=== PATIENT | female | born 1985 ===

== ENCOUNTER 2018-01-31 08:18 | Emergency (ER) | payer OTHER, SELFPAY ==
[2018-01-31 08:25] VITALS: TEMP 97.9; O2SAT 100
[2018-01-31] MEDS ORDERED: Sodium Chloride 0.9% 1,000 ML IV ONE (08:50)
[2018-01-31] MEDS ORDERED: Sodium Chloride 0.9% 1,000 ML ONE (09:18)
--- NOTE | 2018-01-31 09:30 | C.PDOC ---
History Of Present Illness 32 y/o female, with no significant PMHx, presents to the ED for evaluation of RUQ pain gradually developing for the past 2 days. Pain is described as constant, aching, with no change in food intake. Associated with nausea. Otherwise patient denies any vomiting, diarrhea, fevers, chills, back pain, UTI symptoms, vaginal bleeding. Time Seen by Provider: 01/31/18 08:31 Chief Complaint (Nursing): Abdominal Pain History Per: Patient History/Exam Limitations: no limitations Onset/Duration Of Symptoms: Days Current Symptoms Are (Timing): Still Present Location Of Pain/Discomfort: RUQ Radiation Of Pain To:: None Quality Of Discomfort: Aching Associated Symptoms: Nausea Past Medical History Reviewed: Historical Data, Nursing Documentation, Vital Signs Vital Signs: Last Vital Signs Temp 97.9 F 01/31/18 08:22 Pulse 98 H 01/31/18 08:22 Resp 18 01/31/18 08:22 BP 116/79 01/31/18 08:22 Pulse Ox 100 01/31/18 08:22 - Medical History PMH: No Chronic Diseases Surgical History: (x2) Family History: States: Unknown Family Hx - Social History Hx Alcohol Use: No Hx Substance Use: No - Immunization History Hx Tetanus Toxoid Vaccination: No Hx Influenza Vaccination: Yes Hx Pneumococcal Vaccination: No Review Of Systems Except As Marked, All Systems Reviewed And Found Negative. Constitutional: Negative for: Fever, Chills, Sweats Eyes: Negative for: Vision Change Cardiovascular: Negative for: Chest Pain Respiratory: Negative for: Shortness of Breath Gastrointestinal: Positive for: Nausea, Abdominal Pain (RUQ). Negative for: Vomiting, Diarrhea, Hematochezia Genitourinary: Negative for: Dysuria, Frequency, Incontinence Musculoskeletal: Negative for: Back Pain Neurological: Negative for: Weakness, Headache, Dizziness Physical Exam - Physical Exam Appears: Well, Non-toxic, No Acute Distress Skin: Normal Color, Warm, No Rash, No Ecchymosis Head: Normacephalic Eye(s): bilateral: PERRL Neck: Trachea Midline, No Midline Cervical Tenderness, No Paracervical Tenderness, Supple Chest: Symmetrical Cardiovascular: Rhythm Regular, No Murmur Respiratory: Normal Breath Sounds, No Decreased Breath Sounds, No Rales, No Rhonchi, No Wheezing Gastrointestinal/Abdominal: Bowel Sounds (normal), Soft, Tenderness (mild RUQ tenderness), No Guarding, No Rebound Back: No CVA Tenderness, No Vertebral Tenderness Extremity: Normal ROM, No Pedal Edema, No Deformity, No Swelling Pulses: Left Dorsalis Pedis: Normal, Right Dorsalis Pedis: Normal Neurological/Psych: Oriented x3 Gait: Steady ED Course And Treatment - Laboratory Results Result Diagrams: 01/31/18 09:29 01/31/18 09:29 Lab Interpretation: Normal Urine POC: Positive O2 Sat by Pulse Oximetry: 100 (RA) Pulse Ox Interpretation: Normal - CT Scan/US Gallbladder US Other Rad Studies (CT/US): Radiology Report Reviewed CT/US Interpretation: HISTORY: Right upper quadrant abdominal pain. COMPARISON: Ultrasound dated 04/16/2015. Technique: Real-time sonography was performed through the right upper quadrant of the abdomen. Findings: Liver: 14.5 centimeters in length. Increased echogenicity of the hepatic parenchymal cortex suggestive for fatty infiltration versus hepatic parenchymal disease. Clinical correlation. Gallbladder: Contracted. Prominent cholelithiasis. Normal wall thickness of 2.2 millimeters. No gross wall edema. Negative sonographic Nicholson's sign. Common bile duct measures 4.8 millimeters, within normal limits. Limited visualization of the pancreas. Visualized aorta and IVC are preserved. Right kidney: 8.9 x 3.7 x 3 7 centimeters. No calculi or hy dronephrosis. Impression: 1. Increased echogenicity of the hepatic parenchymal cortex suggestive for fatty infiltration versus hepatic parenchymal disease. Clinical correlation. 2. Contracted gallbladder with prominent cholelithiasis. Clinical correlation. 3. Limited visualization of pancreas. Progress Note: Labs ordered and reviewed. Abdominal US and CT Abd/Pelvis taken. Administered IVF hydration and 30 mg IV Toradol. UA review, preg (+). Pt denies vaginal irritation or bleeding, LNMP- [address], Toradol cancelled. Pt was OBS in ED for 2 hours and reamined stable during the Ed evaluation. Afebrile, hemodynamicaly stable. Non-toxic. Tolerate po well in ED. neck: Supple, (-) JVD, (-) carotid bruits B/L. CVS: (+)S1S2, reg. Lungs: CTA B/L, BS equal B/L. Abd: benign, (-) guaridng, (-) rebound. back: (-) CVA tenderness. Blood work review and appears without acute abnormalities. LFT, Lipase- negative. Gallbladder US- no acute abnormalities noted. Pt has clinical findings c/w RUQ pain, gallstones by US without evidence of cholecystitis. Pre gnancy, accidental findings. Pt advise dand ref. to f/u with PMD, OB in 2-3 days for re-evaluation and further tx as need. return if any new changes. Disposition Counseled Patient/Family Regarding: Studies Performed, Diagnosis, Need For Followup - Disposition Referrals: [facility] [Outside] [facility] [Outside] [facility] [Outside] Disposition: HOME/ ROUTINE Disposition Time: 10:32 Condition: STABLE Additional Instructions: Encourage fluids Avoid spicy, fried food Tylenol only as need for pain Follow up with PMD, OB in 2-3 days for re-evaluation. return to Ed if any worsening or new changes. Prescriptions: 21/Iron Fu/Folic Acid [ Complete Caplet] 1 each PO DAILY #30 tablet Instructions: Gallstones, - The First Month, Stomach Pain in Early Forms: Localize Direct (Syriac) - Clinical Impression Clinical Impression: Cholelithiasis, - PA / [employer] / Resident Statement MD/DO has reviewed & agrees with the documentation as recorded. - Scribe Statement The provider has reviewed the documentation as recorded by the Scribwoodrow Franklin All medical record entries made by the Scribe were at my direction and personally dictated by me. I have reviewed the chart and agree that the record accurately reflects my personal performance of the history, physical exam, medical decision making, and the department course for this patient. I have also personally directed, reviewed, and agree with the discharge instructions and disposition.
[2018-01-31 09:42] LABS: BASO % 0.2 % (0.0-2.0); EOS % 0.2 % (0.0-4.0); HEMOGLOBIN 11.2 g/dL (11.0-16.0); LYMPH % 11.4 % (20.0-40.0); MEAN CELL VOLUME 89.3 fL (81.0-99.0); MEAN CORPUSCULAR HEMOGLOBIN 30.5 pg (27.0-31.0); MEAN CORPUSCULAR HGB CONC 34.1 g/dL (33.0-37.0); MEAN PLATELET VOLUME 9.3 fL (7.2-11.7); MONO # 0.5 K/uL (0.0-0.8); MONO % 5.3 % (0.0-10.0); NEUT # 7.1 K/uL (1.8-7.0); NEUT % 82.9 % (50.0-75.0); RBC 3.67 Mil/uL (3.80-5.20); RED CELL DISTRIBUTION WIDTH 13.1 % (11.5-14.5); WHITE BLOOD COUNT 8.5 K/uL (4.8-10.8)
[2018-01-31 09:47] LABS: SQUAMOUS EPITHIAL 7 /hpf (0-5); URINE BACTERIA RARE (<OCC); URINE BILIRUBIN NEGATIVE (NEGATIVE); URINE BLOOD 1+ (NEGATIVE); URINE CLARITY Clear (Clear); URINE COLOR Straw (YELLOW); URINE GLUCOSE (UA) NORMAL (Normal); URINE LEUKOCYTE ESTERASE NEG Leu/uL (Negative); URINE PROTEIN NEGATIVE (NEGATIVE); URINE UROBILINOGEN NORMAL mg/dL (0.2-1.0)
[2018-01-31 09:50] LABS: INR 1.2; PROTHROMBIN TIME 13.6 SECONDS (9.7-12.2)
[2018-01-31 09:52] LABS: ALB/GLOB RATIO 1.2 (1.0-2.1); ALBUMIN 3.6 g/dL (3.5-5.0); ALT/SGPT 25 U/L (9-52); AMYLASE 68 U/L (30-110); AST/SGOT 28 U/L (14-36); BLOOD UREA NITROGEN 9 mg/dL (7-17); CALCIUM 8.7 mg/dl (8.6-10.4); GFR NON-AFRICAN AMERICAN > 60; LIPASE 83 U/L (23-300)
[2018-01-31 09:53] LABS: HCG,QUALITATIVE URINE POSITIVE (NEGATIVE)
--- NOTE | 2018-01-31 10:31 | US ---
Right upper quadrant abdominal ultrasound HISTORY: Right upper quadrant abdominal pain. COMPARISON: Ultrasound dated 04/16/2015 Technique: Real-time sonography was performed through the right upper quadrant of the abdomen. Findings: Liver: 14.5 centimeters in length. Increased echogenicity of the hepatic parenchymal cortex suggestive for fatty infiltration versus hepatic parenchymal disease. Clinical correlation. Gallbladder: Contracted. Prominent cholelithiasis. Normal wall thickness of 2.2 millimeters. No gross wall edema. Negative sonographic Nicholson's sign. Common bile duct measures 4.8 millimeters, within normal limits. Limited visualization of the pancreas. Visualized aorta and IVC are preserved. Right kidney: 8.9 x 3.7 x 3 7 centimeters. No calculi or hydronephrosis. Impression: 1. Increased echogenicity of the hepatic parenchymal cortex suggestive for fatty infiltration versus hepatic parenchymal disease. Clinical correlation. 2. Contracted gallbladder with prominent cholelithiasis. Clinical correlation. 3. Limited visualization of pancreas.
[2018-01-31 11:02] VITALS: BP 113/78; PULSE 89; RESP 20
== END 2018-01-31 11:15 | disposition home or self-care (01) ==
LOC: C.ER 08:18
DX: O99.611 Diseases of the digestive system complicating pregnancy, first trimester (principal); K80.20 Calculus of gallbladder without cholecystitis without obstruction; Z3A.00 Weeks of gestation of pregnancy not specified
CPT/HCPCS: 76705; 80053; 81001; 82150; 83690; 84702; 84703; 85025; 85610; 85730; 96360; 99284; J7030